=== PATIENT | male | born 1955 | race Caucasian/White ===

== ENCOUNTER 2016-08-29 11:00 | Day surgery (SDC) | payer BC ==
[2016-08-24 15:04] VITALS: BMI 25.1
[~2016-08-29 11:00] MED LIST: LACTATED RINGERS 1,000 ML IV SCH
[2016-08-29 11:25] VITALS: RESP 16; TEMP 98.1
[2016-08-29] MEDS ORDERED: LIDOCAINE 1% 20 ML VIAL (10MG/ML) FOR IV START INTRADERMA ONE (11:26)
[2016-08-29] MEDS ORDERED: PROPOFOL 10 MG/ML 20 ML VIAL IV ONE (12:08)
--- NOTE | 2016-08-29 12:10 | P.GSHP ---
History of Present Illness H&P Date: 08/29/16 Chief Complaint: Screening colonoscopy This is a 7-year-old male referred from Dr. Johnna barber. Patient presents today for screening colonoscopy. He denies a significant GI complaints. Never had a colonoscopy before. - Constitutional Constitutional: Reports as per HPI Past Medical History Past Medical History: GI Bleed History of Any Multi-Drug Resistant Organisms: None Reported Past Surgical History: Appendectomy, Heart Catheterization, Tonsillectomy Past Anesthesia/Blood Transfusion Reactions: No Reported Reaction Smoking Status: Current every day smoker Past Alcohol Use History: Daily Additional Past Alcohol Use History / Comment(s): smoker since age 16 1ppd Past Drug Use History: None Reported - Past Family History Mother Family Medical History: Congestive Heart Failure (CHF) Father Family Medical History: Cancer Sister(s) Family Medical History: Cancer Medications and Allergies Home Medications Medication Instructions Recorded Confirmed Type Adult 50+ Eye Health Vitamin 1 tab PO DAILY 08/24/16 08/29/16 History Aspirin [Adult Low Dose Aspirin EC] 81 mg PO DAILY 08/24/16 08/29/16 History Glucosamine Sulfate 1 tab PO DAILY 08/24/16 08/29/16 History Magnesium 1 tab PO DAILY 08/24/16 08/29/16 History Multivitamins, Thera [Multivitamin] 1 tab PO DAILY 08/24/16 08/29/16 History [place]-3 Fatty Acids/Fish Oil [Fish 1 each PO DAILY 08/24/16 08/29/16 History Oil 1,000 mg Softgel] Zinc 50 mg PO DAILY 08/24/16 08/29/16 History Allergies Allergy/AdvReac Type Severity Reaction Status Date / Time No Known Allergies Allergy Verified 08/29/16 11:23 Surgical - Exam Vital Signs Temp Pulse Resp BP Pulse Ox 98.1 F 91 16 142/86 98 08/29/16 11:13 08/29/16 11:13 08/29/16 11:13 08/29/16 11:13 08/29/16 11:13 - General well developed, no distress - Eyes PERRL - ENT normal pinna - Neck no masses - Respiratory normal expansion - Cardiovascular Rhythm: regular - Abdomen Abdomen: soft, non tender Assessment and Plan Plan: We'll perform screening colonoscopy.
--- NOTE | 2016-08-29 12:28 | P.OP ---
Date of Procedure: 08/29/16 Preoperative Diagnosis: Screening colonoscopy Postoperative Diagnosis: Diverticulosis Transverse colon polyp Procedure(s) Performed: Colonoscopy Anesthesia: MAC Surgeon: Deacon [place] Pathology: other (Transverse colon polyp) Condition: stable Disposition: PACU Description of Procedure: The patient's placed on the endoscopy table in the lateral position. He received IV sedation. Digital rectal exam performed which revealed no abnormalities. The flexible colonoscope was then placed patient anus passed throughout the entire colon. The ileocecal valve was visualized. The cecum appeared normal. The right colon was normal. In the proximal transverse colon there is a small polyp seen and this was biopsied with a forcep and removed. Remainder the transverse colon appeared normal. In the descending and sigmoid colon is mild diverticular changes. The scope was then brought back into the rectum and this appeared normal. Scope was then withdrawn from patient.
[2016-08-29 12:58] VITALS: BP 134/86; PULSE 77
== END 2016-08-29 13:35 | disposition home or self-care (01) ==
LOC: ORWHC2ENDO 11:00
PROVIDERS: ATTEND Surgery
DX: Z12.11 Encounter for screening for malignant neoplasm of colon (principal); K63.5 Polyp of colon; K57.30 Diverticulosis of large intestine without perforation or abscess without bleeding; F17.200 Nicotine dependence, unspecified, uncomplicated; Z79.82 Long term (current) use of aspirin
CPT/HCPCS: 88305; 45380; J2704; 99153